=== PATIENT | male | born 1955 | race Caucasian/White ===

== ENCOUNTER 2019-02-19 14:42 | Emergency (ER) | payer OTHER ==
[2019-02-19 15:41] LABS: Absolute Lymphocytes (CBC) 0.5 K/uL (0.7-4.9); Absolute Monocytes 0.6 K/uL (0.1-1.3); Absolute Neutrophil 9.6 K/uL (1.8-8.0); Basophils % 0.3 % (0-1.3); Eosinophils % 0.9 % (0-4.4); Hematocrit 43.1 % (39.6-49.0); Lymphocytes % 4.8 % (15.3-44.8); MPV 9.4 fL (7.6-11.3); Monocytes % 5.2 % (3.3-12.3); Protime INR 1.01; RBC Red Blood Cell Count 4.53 M/uL (4.33-5.43)
[2019-02-19 16:05] LABS: ALT/SGPT 39 U/L (12-78); AST/SGOT 24 U/L (15-37); Albumin 3.5 g/dL (3.4-5.0); Alkaline Phosphatase 71 U/L (45-117); BUN Blood Urea Nitrogen 29 mg/dL (7-18); Bicarbonate 24 mmol/L (21-32); Bilirubin Direct 0.1 mg/dL (0-0.2); Bilirubin Total 0.5 mg/dL (0.2-1.0); Glucose Level 102 mg/dL (74-106); Magnesium 1.9 mg/dL (1.8-2.4); NT PRO-BNP 30 pg/mL (<125); Potassium 4.3 mmol/L (3.5-5.1); Protein, Total 7.2 g/dL (6.4-8.2); Sodium Level 141 mmol/L (136-145); Troponin (Emerg Dept Use Only) < 0.02 ng/mL (0.0-0.045)
--- NOTE | 2019-02-19 16:06 | RAD REPORT ---
EXAM DESCRIPTION: Elaine Single View02/19/2019 3:53 pm CLINICAL HISTORY: Chest pain COMPARISON: 2017 FINDINGS: The lungs appear clear of acute infiltrate. The heart is borderline enlarged IMPRESSION: No acute abnormalities displayed
[2019-02-19 16:30] LABS: Blood Morphology Comment NOT SEEN (NOT SEEN); Platelet Estimate ADEQ; Urine White Blood Cell Casts OK
[2019-02-19] MEDS ORDERED: NA CHLORIDE 0.9% 500 ML ONE (16:47)
--- NOTE | 2019-02-19 16:56 | EDPHYS ---
Physician Documentation [facility] Name: Jeremias Murray Age: 63 yrs Sex: Male : 1955 Arrival Date: 02/19/2019 Time: 14:43 Bed 7 Private MD: ED Physician Reji Horner HPI: 02/19 18:56 This 63 yrs old Male presents to ER via EMS with complaints of Near Syncope. gs 18:56 The patient has experienced near-syncope, almost passed out, felt dizzy. Onset: The gs symptoms/episode began/occurred acutely, just prior to arrival. Duration: This was a single episode. Associated injury: The patient did not suffer any apparent associated injury. Associated signs and symptoms: Pertinent negatives: abdominal pain, chest pain, confusion. Current symptoms: Currently, the patient is not experiencing any symptoms, the patient feels back to baseline. The patient has experienced similar episodes in the past, a few times. Historical: - Allergies: 14:49 No Known Allergies; tw2 - Home Meds: 14:49 lisinopril Oral [Active]; unknown cholesterol medication [Active]; tw2 - PMHx: 14:49 Hyperlipidemia; Hypertension; tw2 - Immunization history:: Adult Immunizations. - Social history:: Smoking status: . - Ebola Screening: : Patient denies travel to an Ebola-affected area in the 21 days before illness onset. ROS: 18:56 All other systems are negative. gs Exam: 18:56 Head/Face: Normocephalic, atraumatic. Eyes: Pupils equal round and reactive to light, gs extra-ocular motions intact. Lids and lashes normal. Conjunctiva and sclera are non-icteric and not injected. Cornea within normal limits. Periorbital areas with no swelling, redness, or edema. ENT: Nares patent. No nasal discharge, no septal abnormalities noted. Tympanic membranes are normal and external auditory canals are clear. Oropharynx with no redness, swelling, or masses, exudates, or evidence of obstruction, uvula midline. Mucous membranes moist. Neck: Trachea midline, no thyromegaly or masses palpated, and no cervical lymphadenopathy. Supple, full range of motion without nuchal rigidity, or vertebral point tenderness. No Meningismus. Chest/axilla: Normal chest wall appearance and motion. Nontender with no deformity. No lesions are appreciated. Cardiovascular: Regular rate and rhythm with a normal S1 and S2. No gallops, murmurs, or rubs. Normal PMI, no JVD. No pulse deficits. Respiratory: Lungs have equal breath sounds bilaterally, clear to auscultation and percussion. No rales, rhonchi or wheezes noted. No increased work of breathing, no retractions or nasal flaring. Abdomen/GI: Soft, non-tender, with normal bowel sounds. No distension or tympany. No guarding or rebound. No evidence of tenderness throughout. Back: No spinal tenderness. No costovertebral tenderness. Full range of motion. Skin: Warm, dry with normal turgor. Normal color with no rashes, no lesions, and no evidence of cellulitis. MS/ Extremity: Pulses equal, no cyanosis. Neurovascular intact. Full, normal range of motion. Neuro: Awake and alert, GCS 15, oriented to person, place, time, and situation. Cranial nerves II-XII grossly intact. Motor strength 5/5 in all extremities. Sensory grossly intact. Cerebellar exam normal. Normal gait. 18:56 ECG was reviewed by the Attending Physician. Vital Signs: 14:48 BP 108 / 55; Pulse 76; Resp 17; Temp 97.8(O); Pulse Ox 95% on R/A; Weight 131.54 kg tw2 (R); Height 5 ft. 11 in. (180.34 cm) (R); Pain 0/10; 15:45 BP 125 / 61; Pulse 68 MON; Resp 23; Pulse Ox 98% on R/A; sv 16:40 BP 130 / 64; Pulse 74; Resp 20; Pulse Ox 98% ; sv 14:48 Body Mass Index 40.45 (131.54 kg, 180.34 cm) tw2 15:45 Sinus Rhythm sv MDM: 15:11 Patient medically screened. gs 18:56 Differential Diagnosis: cardiac arrhythmia, drug effect, vasovagal episode, gs dehydration. Data reviewed: vital signs, nurses notes, lab test result(s), EKG, radiologic studies. Counseling: I had a detailed discussion with the patient and/or guardian regarding: the historical points, exam findings, and any diagnostic results supporting the discharge/admit diagnosis, lab results, the need for outpatient follow up. Response to treatment: the patient's symptoms have markedly improved after treatment, the patient's symptoms have resolved after treatment, and as a result, I will discharge patient. 02/19 15:15 Order name: Basic Metabolic Panel; Complete Time: 16:31 gs 02/19 15:15 Order name: CBC with Diff; Complete Time: 16:31 gs 02/19 15:15 Order name: LFT's; Complete Time: 16:31 gs 02/19 15:15 Order name: Magnesium; Complete Time: 16:31 gs 02/19 15:15 Order name: NT PRO-BNP; Complete Time: 16:31 gs 02/19 15:15 Order name: PT-INR; Complete Time: 16:31 gs 02/19 15:15 Order name: Troponin (emerg Dept Use Only); Complete Time: 16:31 gs 02/19 15:15 Order name: XRAY Chest (1 view); Complete Time: 16:31 gs 02/19 15:15 Order name: EKG; Complete Time: 15:16 gs 02/19 15:15 Order name: Cardiac monitoring; Complete Time: 15:16 gs 02/19 15:15 Order name: EKG - Nurse/Tech; Complete Time: 15:16 gs 02/19 15:48 Order name: CBC Smear Scan; Complete Time: 16:31 EDMS 02/19 15:15 Order name: IV Saline Lock; Complete Time: 15:16 gs 02/19 15:15 Order name: Labs collected and sent; Complete Time: 15:16 gs 02/19 15:15 Order name: O2 Per Protocol; Complete Time: 15:16 gs 02/19 15:15 Order name: O2 Sat Monitoring; Complete Time: 15:16 gs EC:56 Rate is 74 beats/min. Rhythm is regular. [place] interval is normal. QRS interval is gs prolonged. T waves are Normal. No ST changes noted. Clinical impression: Abnormal EKG without significant change. Interpreted by me. Administered Medications: 15:15 Drug: NS 0.9% 1000 ml Route: IV; Rate: 1 bolus; Site: left hand; sv 16:00 Follow up: Response: No adverse reaction; IV Status: Completed infusion; IV Intake: sv 1000ml 16:40 Drug: NS 0.9% 500 ml Route: IV; Rate: bolus; Site: left hand; sv 17:20 Follow up: Response: No adverse reaction; IV Status: Completed infusion; IV Intake: tw2 500ml Disposition: 02/19/19 16:56 Discharged to Home. Impression: Dizziness and giddiness, Orthostatic hypotension, Dehydration. - Condition is Stable. - Discharge Instructions: Dizziness. - Work release form, Medication Reconciliation Form, Thank You Letter, Antibiotic Education, Prescription Opioid Use form. - Follow up: Private Physician; When: 2 - 3 days; Reason: Re-evaluation by your physician. Signatures: Dispatcher [employer] Leidy Kate RN RN Dori Guevara RN RN tw2 Reji Horner MD MD Corrections: (The following items were deleted from the chart) 17:21 16:56 02/19/2019 16:56 Discharged to Home. Impression: Dizziness and giddiness; tw2 Orthostatic hypotension; Dehydration. Condition is Stable. Forms are Medication Reconciliation Form, Thank You Letter, Antibiotic Education, Prescription Opioid Use. Follow up: Private Physician; When: 2 - 3 days; Reason: Re-evaluation by your physician. gs
--- NOTE | 2019-02-19 16:56 | ER ---
Nurse's Notes [facility] Name: Jeremias Murray Age: 63 yrs Sex: Male : 1955 Arrival Date: 02/19/2019 Time: 14:43 Bed 7 Private MD: Diagnosis: Dizziness and giddiness;Orthostatic hypotension;Dehydration Presentation: 02/19 14:38 Presenting complaint: EMS states: pt was sitting at work, non exertion activity, just tw2 began to feel diaphoretic and dizzy, he says that he has not been hydrating, he was + orthostatics, was 105 systolic supine, 86 systolic when standing, upon arrival 115/85, received 200 ml NS, 20 G LEFT HAND, BGL 106 Hx:htn. Transition of care: patient was not received from another setting of care. Onset of symptoms was February 19, 2019. Risk Assessment: Do you want to hurt yourself or someone else? Patient reports no desire to harm self or others. Initial Sepsis Screen: Does the patient meet any 2 criteria? No. Patient's initial sepsis screen is negative. Does the patient have a suspected source of infection? No. Patient's initial sepsis screen is negative. Care prior to arrival: Medication(s) given: Normal saline infusion, 200 ml NS IV initiated. 20 GA, in the left hand, Glucose check: 106. 14:38 Method Of Arrival: EMS: [facility] tw2 14:38 Acuity: ASAF 2 tw2 Triage Assessment: 14:40 General: Appears in no apparent distress. comfortable, well groomed, well developed, sv Behavior is calm, cooperative, appropriate for age. Pain: Denies pain. Neuro: Level of Consciousness is awake, alert, obeys commands, Oriented to person, place, time, situation, Moves all extremities. Full function Gait is steady, Speech is normal. Neuro: Reports near syncope. Respiratory: Respiratory effort is even, unlabored, Respiratory pattern is regular, symmetrical. Derm: Skin is pink, warm \T\ dry. Historical: - Allergies: 14:49 No Known Allergies; tw2 - Home Meds: 14:49 lisinopril Oral [Active]; unknown cholesterol medication [Active]; tw2 - PMHx: 14:49 Hyperlipidemia; Hypertension; tw2 - Immunization history:: Adult Immunizations. - Social history:: Smoking status: . - Ebola Screening: : Patient denies travel to an Ebola-affected area in the 21 days before illness onset. Screenin:50 Abuse screen: Denies threats or abuse. Nutritional screening: No deficits noted. tw2 Tuberculosis screening: No symptoms or risk factors identified. Fall Risk None identified. Assessment: 15:40 Reassessment: Patient appears in no apparent distress at this time. Patient and/or sv family updated on plan of care and expected duration. Pain level reassessed. Patient is alert, oriented x 3, equal unlabored respirations, skin warm/dry/pink. Patient states symptoms have improved. 16:40 Reassessment: Patient appears in no apparent distress at this time. Patient and/or sv family updated on plan of care and expected duration. Pain level reassessed. Patient is alert, oriented x 3, equal unlabored respirations, skin warm/dry/pink. Dr Horner at bedside Patient states feeling better. Patient states symptoms have improved. 17:21 Reassessment: Patient appears in no apparent distress at this time. Patient and/or tw2 family updated on plan of care and expected duration. Pain level reassessed. Patient is alert, oriented x 3, equal unlabored respirations, skin warm/dry/pink. Patient states feeling better. Patient states symptoms have improved. Vital Signs: 14:48 BP 108 / 55; Pulse 76; Resp 17; Temp 97.8(O); Pulse Ox 95% on R/A; Weight 131.54 kg tw2 (R); Height 5 ft. 11 in. (180.34 cm) (R); Pain 0/10; 15:45 BP 125 / 61; Pulse 68 MON; Resp 23; Pulse Ox 98% on R/A; sv 16:40 BP 130 / 64; Pulse 74; Resp 20; Pulse Ox 98% ; sv 14:48 Body Mass Index 40.45 (131.54 kg, 180.34 cm) tw2 15:45 Sinus Rhythm sv ED Course: 14:43 Patient arrived in ED. tw2 14:46 Reji Horner MD is Attending Physician. gs 14:47 Triage completed. tw2 14:47 Maintain EMS IV. Dressing intact. Good blood return noted. Site clean \T\ dry. Gauge \T\ tw 2 site: 20 g LEFT HAND. 14:48 Arm band placed on. tw2 14:50 Leidy Osei, RN is Primary Nurse. sv 14:50 Placed in gown. Bed in low position. restaurant management internship on. Pulse ox on. NIBP on. tw2 15:02 EKG done, by tablet technician. reviewed by Saroj Kim MD. sm3 15:05 Awaiting ED provider evaluation. sv 15:05 Initial lab(s) drawn, by nc, sent to lab. sv 15:14 ED physician to see patient. sv 15:54 XRAY Chest (1 view) In Process Unspecified. EDMS 16:23 CBC Smear Scan Sent. sv 17:20 No provider procedures requiring assistance completed. IV discontinued, intact, tw2 bleeding controlled, No redness/swelling at site. Pressure dressing applied. Administered Medications: 15:15 Drug: NS 0.9% 1000 ml Route: IV; Rate: 1 bolus; Site: left hand; sv 16:00 Follow up: Response: No adverse reaction; IV Status: Completed infusion; IV Intake: sv 1000ml 16:40 Drug: NS 0.9% 500 ml Route: IV; Rate: bolus; Site: left hand; sv 17:20 Follow up: Response: No adverse reaction; IV Status: Completed infusion; IV Intake: tw2 500ml Intake: 16:00 IV: 1000ml; Total: 1000ml. sv 17:20 IV: 500ml; Total: 1500ml. tw2 Outcome: 16:56 Discharge ordered by . 17:20 Discharged to home ambulatory, with family. tw2 17:20 Condition: stable 17:20 Discharge instructions given to patient, family, Instructed on discharge instructions, follow up and referral plans. Demonstrated understanding of instructions, follow-up care. 17:21 Patient left the ED. tw2 Signatures: Dispatcher [employer] EDUT Leidy Osei, RN RN Dori Adler RN RN tw2 Reji Horner MD MD gs Montes, Shakira 3
--- NOTE | 2019-02-20 05:51 | EKG ---
Test Date: 2019-02-19 Test Time: 14:43:18 [employer] Machine Operator: PETE MEASUREMENT RESULTS: Intervals: Rate: 74 OH: 184 QRSD: 106 QT: 382 QTc: 424 [place]: P: 57 OH: 184 QRS: -51 T: 50 INTERPRETIVE STATEMENTS: Normal sinus rhythm Pulmonary disease pattern Incomplete right bundle branch block Left anterior fascicular block Abnormal ECG Compared to ECG 01/13/2017 23:43:55 Left anterior fascicular block now present Electronically Signed On 02-20-19 05:50:58 CDT by Balwinder Parra
== END 2019-02-19 17:21 | disposition home or self-care (01) ==
LOC: ER 14:42
DX: I95.1 Orthostatic hypotension (principal); E86.0 Dehydration; R42 Dizziness and giddiness; I45.2 Bifascicular block; R94.31 Abnormal electrocardiogram [ECG] [EKG]; E78.5 Hyperlipidemia, unspecified; I10 Essential (primary) hypertension; Z79.899 Other long term (current) drug therapy
CPT/HCPCS: 36415; 71045; 80048; 80076; 83735; 83880; 84484; 85025; 85610; 93005; 96360; 99284